=== PATIENT | female | born 1945 | race Caucasian/White ===

== ENCOUNTER → 2019-06-21 | Outpatient (CLI) | payer MEDICARE ==
--- NOTE | 2019-06-21 16:57 | KCIC ---
Bilateral digital screening mammograms: Reason for examination: Routine screening. New baseline. Interpretation was made with the benefit of CAD. The skin and nipples show no abnormalities. No abnormal axillary lymph nodes are seen. The breast parenchyma is heterogeneously dense. (Breast density: Category C) There are small nodular densities present which appears to be at the 2:00 position anteriorly in the right breast and in the subareolar 6:00 position of the right breast and at approximately the 4:00 B position of the left breast. Further evaluation with ultrasound is recommended. A few benign calcifications are again seen. Impression: Small nodular parenchymal densities seen bilaterally. Ultrasound follow-up is recommended. Your patient's mammogram demonstrates that she has dense breast tissue (breast density category C or D), which could hide abnormalities, and if she has other risk factors for breast cancer that have been identified, she might benefit from supplemental screening tests that may be suggested by you as her ordering physician. Dense breast tissue, in and of itself, is a relatively common condition. Therefore, this information is not provided to cause undue concern, but rather to raise your awareness and to promote discussion with your patient regarding the presence of other risk factors, in addition to dense breast tissue. Your patient's mammography results will be sent to her. BI-RADS Category 0: Incomplete. Needs additional imaging evaluation. "Our facility is accredited by the [employer] Mammography [employer]." This patient's information has been entered into a reminder system for the patient to be notified with the results of her examination and a target date for the next mammogram. Electronically signed by: Rani Barclay MD (06/21/2019 4:55 PM) [id number]
== END | disposition home or self-care (01) ==
LOC: KCIC MAMMO 15:22
PROVIDERS: ATTEND Family Medicine
DX: Z12.31 Encounter for screening mammogram for malignant neoplasm of breast (principal); N64.89 Other specified disorders of breast
CPT/HCPCS: 77067

== ENCOUNTER → 2019-07-06 | Outpatient (CLI) | payer MEDICARE ==
--- NOTE | 2019-07-06 17:10 | KCIC ---
Bilateral breast ultrasound: Reason for examination: Small nodular densities bilaterally on screening mammogram. Comparison is made to mammographic exam dated 06/21/2019. Bilateral whole breast ultrasound including evaluation of all 4 quadrants and the retroareolar and axillary regions of both breasts was performed. In the right breast at the 2:00 position, there is some ductal ectasia. In the retroareolar 3:00 position, there is some ductal ectasia. In the retroareolar 6:00 position, there is some cystic ductal ectasia. No suspicious nodules are seen. No abnormal appearing lymph nodes are seen in the right axilla. In the left breast, there is some ductal ectasia but no other focal abnormalities are seen. No abnormal appearing lymph nodes are seen in the left axilla. 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 No suspicious abnormality seen. Recommend 6 month follow-up of the right breast with mammograms and ultrasound. BI-RADS Category 3: Probably Benign. "Our facility is accredited by the [employer] Mammography [employer]." This patient's information has been entered into a reminder system for the patient to be notified with the results of her examination and a target date for the next mammogram. Electronically signed by: Rani Barclay MD (07/06/2019 5:07 PM) [id number]
== END | disposition home or self-care (01) ==
LOC: KCIC US 12:37
PROVIDERS: ATTEND Family Medicine
DX: N60.42 Mammary duct ectasia of left breast (principal); N60.41 Mammary duct ectasia of right breast
CPT/HCPCS: 76641

== ENCOUNTER → 2020-05-30 | Outpatient (CLI) | payer MEDICARE ==
--- NOTE | 2020-05-30 11:43 | KCIC ---
Examination: Ultrasound abdomen limited HISTORY: History of elevated transaminase levels COMPARISON: None available FINDINGS: The liver length measures 13.4 cm. The gallbladder wall thickness measures 1.6 mm. No evidence of gallstones. The common bile duct measures 4.9 mm in transverse dimension. The pancreas is not well-visualized due to bowel gas. The aorta, IVC are not well-visualized due to bowel gas. There is a questionable 2.9 cm hypoechoic lesion/region identified in the midline near the pancreas. IMPRESSION: 1. There is a questionable 2.9 cm hypoechoic lesion/region identified in the midline near the pancreas. Consider cross-sectional imaging with CT scan with IV contrast if clinically feasible. 2. No evidence of gallstones. Electronically signed by: Thomas Rogers MD (05/30/2020 11:40 AM) [id number]
== END ==
LOC: KCIC US 09:58
PROVIDERS: ATTEND Family Medicine
DX: R74.01 Elevation of levels of liver transaminase levels (principal)
CPT/HCPCS: 76705

== ENCOUNTER → 2020-06-14 | Outpatient (CLI) | payer MEDICARE ==
[~2020-06-14] MED LIST: ATOR20TA58 PO; FAMO20TA5 PO; IOHEXOL 240 MG/ML 50ML VIAL. PO ONE; IOHEXOL 300 MG/ML 100ML VIAL. IV ONE; PANT20TA2 PO; TRIA15OI TP
--- NOTE | 2020-06-14 17:41 | KCIC ---
CT scan of the abdomen and pelvis with contrast 06/14/2020 CLINICAL HISTORY: Questionable hypoechoic lesion involving the abdomen near the pancreas. A CT scan was recommended for further evaluation. TECHNIQUE: After the oral and intravenous administration of contrast, contiguous, 5 mm axial sections were obtained through the abdomen and pelvis. 89 cc of Omnipaque 300 were administered intravenously during this examination. One or more of the following individualized dose reduction techniques were utilized for this study: 1. Automated exposure control. 2. Adjustment of the mA and/or kV according to patient size. 3. Use of iterative reconstruction technique. FINDINGS: Comparison is made to the patient's ultrasound of the abdomen dated 05/30/2020. Images through the lung bases demonstrate a small to moderate-sized hiatal hernia. The liver parenchyma has a decreased attenuation consistent with fatty infiltration. The spleen, adrenal glands and right kidney are within normal limits. A 3.3 cm rounded low-attenuation lesion is seen involving the superior pole of the left kidney. This likely represents a cyst. No further imaging evaluation is recommended. The pancreas is within normal limits. No abnormal mass or cystic lesion is seen. The abnormality seen on patients ultrasound may have reflected a nonperistalsing bowel loop. Atherosclerotic calcification of the abdominal aorta is seen. The abdominal aorta tapers normally. No free fluid or free air is seen within the abdomen. The gallbladder is contracted. There is no evidence of bowel obstruction. Images through the pelvis demonstrate the urinary bladder distended with urine. Calcifications are seen within the pelvis consistent with phleboliths. A 6 cm rounded mass is seen involving the uterus consistent with a uterine fibroid. A 2 cm cyst is seen involving the right ovary. Very mild S-shaped curvature of the thoracolumbar spine is seen. Degenerative changes are seen involving the lower thoracic and throughout the lumbar spine along with both hips. IMPRESSION: No acute abnormality is seen. No abnormality of the pancreas is identified. Electronically signed by: Neno Thompson MD (06/14/2020 5:38 PM) [id number]
== END ==
LOC: KCIC CT 12:47
PROVIDERS: ATTEND Family Medicine
DX: N83.291 Other ovarian cyst, right side (principal); N28.89 Other specified disorders of kidney and ureter; N32.89 Other specified disorders of bladder; I87.8 Other specified disorders of veins; N85.9 Noninflammatory disorder of uterus, unspecified; D25.9 Leiomyoma of uterus, unspecified
CPT/HCPCS: 74177; 82565; Q9966; Q9967